=== PATIENT | female | born 2000 | race Caucasian/White ===

== ENCOUNTER 2021-12-16 12:26 | Outpatient (REF) | payer OTHER, SELFPAY ==
[2021-12-16 12:48] LABS: Binax Internal Control QC Valid; Binax Now Covid-19 Ag Negative (Negative)
== END 2021-12-16 12:27 | disposition home or self-care (01) ==
LOC: HO.LAB 12:26
PROVIDERS: Visit Provider Internal Medicine
DX: Z13.89 Encounter for screening for other disorder (principal)

== ENCOUNTER 2022-05-25 02:38 | Emergency (ER) | payer OTHER, SELFPAY ==
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
[2022-05-25 03:23] VITALS: BP 112/57; PULSE 98; RESP 16; TEMP 36.7; O2SAT 94; BMI 24.7
--- NOTE | 2022-05-25 03:28 | PC.NURSE ---
Wound bandaged per instructions from MD. Awaiting x-ray results.
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
== END 2022-05-25 03:49 | disposition home or self-care (01) ==
PROVIDERS: Emergency Provider Emergency Medicine Emergency Medical Services
DX: S61.302A Unspecified open wound of right middle finger with damage to nail, initial encounter (principal); X58.XXXA Exposure to other specified factors, initial encounter; Y93.9 Activity, unspecified; Y92.9 Unspecified place or not applicable; Y99.9 Unspecified external cause status
CPT/HCPCS: 73140; 99282; 99283